=== PATIENT | female | born 1970 | race Caucasian/White ===

== ENCOUNTER 2021-03-04 07:04 | Day surgery (SDC) | payer BC ==
--- NOTE | 2021-03-01 16:15 | EKG ---
Test Date: 2021-02-28 Test Time: 13:12:14 Nutrition Professor: LUDWIG MEASUREMENT RESULTS: Intervals: Rate: 71 ID: [id number] QRSD: 82 QT: 392 QTc: 425 Saltese: P: 75 ID: [id number] QRS: 72 T: 76 INTERPRETIVE STATEMENTS: Normal sinus rhythm Normal ECG No previous ECG available for comparison Electronically Signed On 03-01-21 16:11:56 CDT by Jah Ford
[2021-03-04] MEDS ORDERED: Ringers Lactate 1,000 ML IV ONE ×2 (07:56→12:07)
[2021-03-04 08:43] LABS: Specific Gravity 1.015 (1.005-1.030)
[2021-03-04] MEDS ORDERED: LIDOCAINE 1% W/EPI 1:100,000 10 ML VIAL ONE (09:22)
[2021-03-04] MEDS ORDERED: EPINEPHRINE/PF 1 MG/ML AMP ONE (09:22)
[2021-03-04] MEDS ORDERED: BACITRACIN OINTMENT 15 GM TUBE TOP ONE (09:22)
[2021-03-04] MEDS ORDERED: OXYMETAZOLINE HCL 0.05% 15ML NAS ONE (09:22)
[2021-03-04] MEDS ORDERED: OFLOXACIN OPH 0.3%-5 ML BTL ONE (09:22)
[2021-03-04] MEDS ORDERED: propofoL 200 MG/20 ML VIAL IV ONE (10:39)
[2021-03-04] MEDS ORDERED: MIDAZOLAM HCL 2 MG/2 ML INJ ONE (10:39)
[2021-03-04] MEDS ORDERED: FENTANYL CITR 100 MCG/2 ML ONE (10:39)
[2021-03-04] MEDS ORDERED: dexAMETHasone 10 MG/ML VIAL ONE (10:39)
[2021-03-04] MEDS ORDERED: ROCURONIUM 50 MG/5 ML VIAL IV ONE (10:40)
[2021-03-04] MEDS ORDERED: LIDOCAINE 1% MPF 5 ML VIAL ONE (10:40)
[2021-03-04] MEDS ORDERED: ONDANSETRON 4 MG/2 ML VIAL ONE (10:40)
[2021-03-04] MEDS ORDERED: EPHEDRINE SULF 50 MG/ML VIAL ONE (11:14)
--- NOTE | 2021-03-04 11:28 | P.BOP ---
Preoperative diagnosis: left TM perforation Postoperative diagnosis: same Primary procedure: fat graft myringoplasty Display Director: NONE,NONE Estimated blood loss: minimal Specimen: left middle ear polyp Findings: 5% central perforation immediately overlying IS joint Anesthesia: General Complications: None Implants: none Fluids & blood products: crystalloid 1L Transferred to: Recovery Room Condition: Good
[2021-03-04] MEDS ORDERED: KETOROLAC 30 MG/ML INJ ONE (11:47)
[2021-03-04] MEDS ORDERED: NEOSTIGMINE 1 MG/ML -5 ML ONE (11:47)
[2021-03-04] MEDS ORDERED: GLYCOPYRROLATE 0.2 MG/ML SYR ONE (11:47)
[2021-03-04 12:15] VITALS: TEMP 96.9
--- NOTE | 2021-03-04 12:51 | OP ---
Surgeon: Irena Jack MD Preoperative Diagnosis: Left tympanic membrane perforation with conductive hearing loss. Postoperative Diagnosis: Left tympanic membrane perforation with conductive hearing loss. Procedure: Fat myringoplasty. Indication For Procedure: The patient presented to the ENT Clinic with a chronic perforation and con ductive hearing loss. After reviewing the risks and benefits, we discussed surgical options includin g myringoplasty and tympanoplasty deferring final decision for procedure based on intraoperative find ings. The patient was brought to the operative bed. Description Of Procedure In Detail: The patient was brought to the operating room. She was placed u nder general anesthesia via oral endotracheal tube. The head of bed was turned 90 degrees and the pa tient's head was turned toward the right for visualization of the left ear. A 5 mm ear speculum was used to aid in visualization using binocular microscopy. A 5% perforation was noted with a small ramakrishna unt of polypoid like granulation tissue at the superior anterior aspect. Visible through the perfora tion was the incudostapedial joint. Gentle palpation suggested that the ossicular chain was intact. A Ho needle, a sickle knife, and a fish elevator were used to gently rim the perforation in prepa ration for grafting. After adequate preparation and removal of a small amount of granulation polyp l adali tissue from the medial aspect of the eardrum, preparation was made for grafting. A 1 cm postauri cular incision was made through the skin using a scalpel and a small fat graft was harvested. The in cision was closed in a simple interrupted fashion using 5-0 fast-absorbing gut sutures. The fat shagufta t was placed in a dumbbell fashion through the perforation. The ear canal was then filled with oflox acin soaked Gelfoam dressing in order to provide protection during the healing process. A small amou nt of triple antibiotic ointment and bandage were applied to the graft donor site and the procedure w as concluded. The patient was returned to care of Anesthesia for awakening and extubation in the ope rating room, which proceeded without difficulty. Complications: None. Implants: None. Iv Fluids: 1 L of crystalloid. Blood Loss: Minimal, less than 5 mL. Disposition: The patient will follow up with Dr. Jack in 1 month for reevaluation of healing and is given strict ear and nasal precautions with ofloxacin eardrops and OTC pain medications as needed. JAMIE/ADAN Voice ID: [id number] Report ID: [id number]
[2021-03-04 13:14] VITALS: BP 114/51; O2SAT 98
== END 2021-03-04 13:30 | disposition home or self-care (01) ==
LOC: OR 07:04
PROVIDERS: ATTEND Otolaryngology
PROC: 0JB00ZZ Excision of Scalp Subcutaneous Tissue and Fascia, Open Approach (ICD-10-PCS; 2021-03-04)
PROC: 09U877Z Supplement Left Tympanic Membrane with Autologous Tissue Substitute, Via Natural or Artificial Opening (ICD-10-PCS; principal; 2021-03-04 08:30)
DX: H72.02 Central perforation of tympanic membrane, left ear (principal); H90.12 Conductive hearing loss, unilateral, left ear, with unrestricted hearing on the contralateral side; J32.4 Chronic pansinusitis; Z82.61 Family history of arthritis; H74.42 Polyp of left middle ear; Z20.822 Contact with and (suspected) exposure to COVID-19
CPT/HCPCS: 93005; 81025; 88304; 69620; U0002; J2704; J2250; J3010; J1100; J2710; J7120 ×2; J2405; 88305; J0171

== ENCOUNTER 2021-06-22 06:24 | Day surgery (SDC) | payer BC ==
[2021-06-22] MEDS ORDERED: CEFAZOLIN/NS 1gm 1 GM/50 ML BAG ONE (06:55)
[2021-06-22] MEDS: Ringers Lactate 1,000 ML IV ONE ×2 (07:00→07:57)
[2021-06-22] MEDS ORDERED: dexAMETHasone 10 MG/ML VIAL ONE (07:15)
[2021-06-22] MEDS ORDERED: BUPIVACAINE 0.5% PF 10 ML VIAL ONE (07:16)
[2021-06-22] MEDS ORDERED: dexAMETHasone 4 MG/ML VIAL ONE (07:16)
[2021-06-22] MEDS ORDERED: propofoL 200 MG/20 ML VIAL IV ONE (07:31)
[2021-06-22] MEDS ORDERED: LIDOCAINE 2% MPF 5 ML VIAL ONE (07:31)
[2021-06-22] MEDS ORDERED: FENTANYL CITR 100 MCG/2 ML ONE (07:31)
[2021-06-22] MEDS ORDERED: MIDAZOLAM HCL 2 MG/2 ML INJ ONE (07:31)
[2021-06-22] MEDS ORDERED: GLYCOPYRROLATE 0.2 MG/ML SYR ONE (07:51)
[2021-06-22] MEDS ORDERED: ONDANSETRON 4 MG/2 ML VIAL ONE (08:24)
[2021-06-22] MEDS ORDERED: CEFAZOLIN SODIUM 1 GM/VIAL ONE (08:25)
--- NOTE | 2021-06-22 09:08 | RAD REPORT ---
EXAM DESCRIPTION: RAD - Foot Left 2 View - 06/22/2021 8:57 am CLINICAL HISTORY: HEEL SPUR SX COMPARISON: Foot Left 3 View dated 01/26/2021 FINDINGS: Fluoroscopy time 0.5 minutes
[2021-06-22 09:23] VITALS: O2SAT 100
[2021-06-22] MEDS ORDERED: KETOROLAC 30 MG/ML INJ ONE (09:26)
[2021-06-22] MEDS: FENTANYL CITR 100 MCG/2 ML ONE ×4 (09:27→09:57)
[2021-06-22 10:57] VITALS: BP 110/51; TEMP 97
== END 2021-06-22 10:52 | disposition home or self-care (01) ==
LOC: OR 06:24
PROVIDERS: ATTEND Podiatrist Foot & Ankle Surgery
PROC: 0KNW0ZZ Release Left Foot Muscle, Open Approach (ICD-10-PCS; principal; 2021-06-22 07:30)
DX: M72.2 Plantar fascial fibromatosis (principal); M77.32 Calcaneal spur, left foot; Z20.822 Contact with and (suspected) exposure to COVID-19
CPT/HCPCS: 28060; 73620; U0003; J2704; J2250; J3010 ×2; J1100; J0690 ×2; J7120; J2405

== ENCOUNTER 2021-10-07 07:36 | Day surgery (SDC) | payer BC ==
[2021-10-03 09:20] LABS: Absolute Lymphocytes (CBC) 1.5 K/uL (0.7-4.9); Hematocrit 42.1 % (36.0-45.0); Lymphocytes % 29.4 % (15.3-44.8); MPV 7.9 fL (7.6-11.3); RBC Red Blood Cell Count 4.66 M/uL (3.86-4.86)
[2021-10-07] MEDS ORDERED: Ringers Lactate 1,000 ML IV ONE (07:56)
[2021-10-07 07:59] LABS: Specific Gravity >= 1.030 (1.005-1.030)
[2021-10-07] MEDS: OXYMETAZOLINE HCL 0.05% 15ML NAS ONE ×3 (08:05→08:15)
[2021-10-07] MEDS ORDERED: MIDAZOLAM HCL 2 MG/2 ML INJ ONE (08:18)
[2021-10-07] MEDS ORDERED: propofoL 200 MG/20 ML VIAL IV ONE (08:18)
[2021-10-07] MEDS ORDERED: FENTANYL CITR 100 MCG/2 ML ONE ×2 (08:18→10:10)
[2021-10-07] MEDS ORDERED: LIDOCAINE 2% MPF 5 ML VIAL ONE (08:21)
[2021-10-07] MEDS ORDERED: ROCURONIUM 50 MG/5 ML VIAL IV ONE (08:21)
[2021-10-07] MEDS ORDERED: dexAMETHasone 10 MG/ML VIAL ONE (08:22)
[2021-10-07] MEDS ORDERED: OXYMETAZOLINE HCL 0.05% 15ML NAS ONE (08:32)
[2021-10-07] MEDS: LIDOCAINE 1% W/EPI 1:100,000 MDV 50 ML VIAL ONE ×2 (08:36→09:45)
[2021-10-07] MEDS ORDERED: ONDANSETRON 4 MG/2 ML VIAL ONE (08:47)
[2021-10-07] MEDS ORDERED: NA CHLORIDE 0.9% 500 ML ONE (08:52)
[2021-10-07] MEDS ORDERED: ACETAMINOPHEN 500 MG TAB ONE (08:55)
[2021-10-07] MEDS ORDERED: CELECOXIB 100 MG CAPSULE ONE (08:56)
[2021-10-07] MEDS ORDERED: EPHEDRINE SULF 50 MG/ML VIAL ONE (09:28)
[2021-10-07] MEDS ORDERED: TRIAMCINOLONE ACETON 40 MG/ML VIAL ONE (10:33)
[2021-10-07] MEDS ORDERED: KETOROLAC 30 MG/ML INJ ONE (10:55)
[2021-10-07] MEDS ORDERED: AYR NASAL SALINE DROPS NAS PRN (11:41)
--- NOTE | 2021-10-07 11:42 | P.OP ---
Date of Service: 10/07/21 Preoperative Diagnosis: [Chronic maxillary sinusitis] [, chronic ethmoid sinusitis] [, nasal polyps] Postoperative diagnosis: Same Procedure: Bilateral nasal endoscopy with maxillary antrostomy and partial ethmoidectomy Surgeon: Irena Jack MD Lens Engraver: None Indication for procedure: The patient underwent maximal medical therapy for nasal polyps with chronic rhinosinusitis with persistent symptoms. Her post treatment CT showed continued abnormality of the sinuses. The risks, benefits, and alternatives to surgical procedure were discussed with the patient and/or family and they agreed to proceed. Surgical findings: Prominent polyps within the ethmoid, middle meatus, and olfactory cleft IV Fluids: Crystalloid, 900 ml Implants/Packing: Propel to the bilateral ethmoid, propel contour to the right maxillary, Posisep to the bilateral ethmoid and bilateral olfactory cleft soaked with a total of 2 mL of triamcinolone 40 mg/mL Estimated Blood Loss: 120 mL Complications: Progression of surgery halted to degree of bleeding which inhibited visualization Description of procedure in detail: The patient was brought to the operating room. They were placed under general anesthesia via oral endotracheal tube. The head of bed was turned 90 degrees. The nasal hairs were trimmed. The nasal cavity was examined with the nasal speculum and headlight with the following findings: Right inferior septal deviation with polyps within the bilateral middle meatus and medial to the middle turbinate. The nasal cavity was packed with Afrin-soaked pledgets in preparation for the procedure. The patient was draped in a standard fashion for nasal surgery. [Based on the surgical plan and preoperative findings, intraoperative CT navigation was required. The preoperative CT scan was loaded into the [employer] device. The registration dongle was applied with adhesive to the patient's forehead. The electromagnetic device was secured to the operating room bed and evaluation to limit interference was confirmed. The registration handpiece was used to perform patient registration in accordance with manufactu rer's instructions including tracing over the course of the external nose and bilateral forehead and cheeks. Accuracy of the registration was confirmed with [id number] matching at the base of the columella, the radix, and the bilateral medial and lateral canthi. Accuracy was felt to be very good.] A 0 degree endoscope was then used to perform a nasal endoscopy with notable findings of polyps within the olfactory cleft and middle meatus but not extending beyond the middle meatus. Photo documentation was obtained. The left middle turbinate was gently medialized with a Baggs and the uncinate process was removed using a backbiter and 90 degree Blakesley. There was moderate bleeding within the middle meatus and Afrin-soaked cottonoid packing was placed. Similar procedure was performed on the right side. After several minutes the cottonoid packing was removed and the maxillary antrostomies were each enlarged under rigid 30 degree endoscopic visualization using a 90 degree Blakesley. Additional bleeding ensued. A bipolar electrocautery was used to perform some cauterization within the right middle meatus, then Afrin-soaked cottonoid packing was applied. After several minutes the packing was removed and the precision pointer was used to navigate along the ethmoid bulla. The bulla was dissected with a curette and fragments of bone and polyp were removed using a straight, 45 and 90 degree Blakesley. There was moderate to severe oozing which required additional packing with Afrin-soaked pledgets. Dissection slowly progressed but visualization was limited and after opening of the anterior ethmoids, decision was made to forego additional dissection due to the degree of limited visualization. Photodocumentation of the bilateral ethmoids after dissection was obtained. A propel steroid eluding stent was placed into each of the ethmoid cavities. A Posisep resorbable dressing was divided in half with a portion placed within the ethmoid cavity and the remaining portion placed within the olfactory cleft on both the left and the right side. The resorbable dressing was then soaked with 1 mL of 40 mg/mL of triamcinolone on the left with an additional milliliter placed on the right. A propel contour was placed within the right maxillary antrostomy. No propel contour was available for the left side. Small fragments of the resorbable dressing were placed along the right anterior septum and soaked with approximately half a milliliter of saline. The nasopharynx was repeatedly suctioned and reexamined for several minutes until the area appeared clear from any additional bleeding. At the conclusion of the procedure, all pledget counts were confirmed correct. The patient was returned to care of anesthesia for awakening extubation in the operating room which proceeded without difficulty. The patient was transported to the recovery room and will be discharged home later today in the care of their family. The patient is given written and verbal instructions regarding the importance of saline irrigations and nasal precautions.
[2021-10-07] MEDS ORDERED: TRAMADOL HCL 50 MG TAB ONE (12:34)
[2021-10-07] MEDS ORDERED: SOD CHLORIDE 0.65% NASAL SPRAY NAS SCH (13:00)
[2021-10-07 13:08] VITALS: BP 116/47; O2SAT 99
[2021-10-07 13:17] VITALS: TEMP 97
== END 2021-10-07 12:50 | disposition home or self-care (01) ==
LOC: OR 07:36
PROVIDERS: ATTEND Otolaryngology
PROC: 099Q8ZZ Drainage of Right Maxillary Sinus, Via Natural or Artificial Opening Endoscopic (ICD-10-PCS; 2021-10-07)
PROC: 099R8ZZ Drainage of Left Maxillary Sinus, Via Natural or Artificial Opening Endoscopic (ICD-10-PCS; principal; 2021-10-07 08:45)
DX: J32.4 Chronic pansinusitis (principal); J34.2 Deviated nasal septum; J33.9 Nasal polyp, unspecified; Z20.822 Contact with and (suspected) exposure to COVID-19
CPT/HCPCS: 85025; 36415; 81025; 88305; 31256; 31254; U0002; J2704; J3301; J2250; J3010 ×2; J1100; J7120; J7040; J2405

== ENCOUNTER 2022-03-03 06:02 | Day surgery (SDC) | payer BC ==
[2022-02-28 13:32] LABS: Absolute Lymphocytes (CBC) 2.8 K/uL (0.7-4.9); Lymphocytes % 31.7 % (15.3-44.8); MPV 7.5 fL (7.6-11.3); RBC Red Blood Cell Count 4.71 M/uL (3.86-4.86)
[2022-02-28 13:42] LABS: SARS-CoV-2 Antigen Rapid Res Negative (Negative)
[2022-03-03] MEDS ORDERED: Ringers Lactate 1,000 ML IV ONE (06:14)
[2022-03-03] MEDS ORDERED: CEFAZOLIN SODIUM 1 GM/VIAL ONE (06:14)
[2022-03-03] MEDS ORDERED: propofoL 200 MG/20 ML VIAL IV ONE (06:56)
[2022-03-03] MEDS ORDERED: LIDOCAINE 2% MPF 5 ML VIAL ONE (06:57)
[2022-03-03] MEDS ORDERED: ONDANSETRON 4 MG/2 ML VIAL ONE ×2 (06:57→07:42)
[2022-03-03] MEDS ORDERED: FENTANYL CITR 100 MCG/2 ML ONE (06:57)
[2022-03-03] MEDS ORDERED: MIDAZOLAM HCL 2 MG/2 ML INJ ONE (06:57)
[2022-03-03] MEDS ORDERED: ALBUTEROL INHALER 60 PUFF/8 GM IH ONE (07:04)
[2022-03-03] MEDS ORDERED: dexAMETHasone 10 MG/ML VIAL ONE (07:40)
--- NOTE | 2022-03-03 08:06 | OP ---
Date of Procedure: 03/03/2022 Surgeon: Se Og MD Preoperative Diagnosis: Right carpal tunnel syndrome. Postoperative Diagnosis: Right carpal tunnel syndrome. Procedure: Right open carpal tunnel release. Estimated Blood Loss: Less than 3 cc. Complications: There were no complications. Specimen: No pathology specimen sent. Indications For Operation: Ms. Valderrama is a 52-year-old female who unfortunately has had pain and numbness and tingling in her hand for some time. She was sent to Neurology, which demonstrates she does have carpal tunnel syndrome. She has been treating this conservatively as she can, but it has b ecome such a bother that she now requests operative intervention and all risks, benefits, and alterna tives to the procedure were discussed. She states she understands things presented and wished to pro ceed. Description Of Procedure: The patient was taken to the operating room and placed in supine position. General anesthesia was easily obtained by the Anesthesia staff. Following this, a well-padded tour niquet was placed on superior right arm. Right upper extremity was then prepped and draped in usual sterile fashion for procedure. After this, the presumed incision was then marked out and the arm was then elevated, but not exsanguinated, and tourniquet was raised. A standard incision was made, whic h parallels the thenar crease with slight ulnar deviation at the distal wrist crease, was taken down carefully through skin, only meticulous hemostasis being maintained using bipolar electrocautery. Th is leads down to the palmar fascia which was divided longitudinally. After this, any obstructions of the transverse carpal ligament were gently swept to the side and a small lele was made in the transv erse carpal ligament, which demonstrates the underlying median nerve and carpal tunnel structures. I t was then released from a proximal to distal direction until there were no constricting bands. It s hould be noted that the motor branch may be piercing the transverse carpal ligament; however, definit piero was identified and not injured. Attention was then turned from a distal to proximal direction un til there were no constricting bands. At the conclusion, the nerve was inspected, it was found to be in continuity throughout its course and at no time were any sharp instruments placed outside the dir ect operative view. After this, the incision was then gently sutured and the patient was placed in a well-padded sterile dressing, awakened, and taken to recovery room in good condition, no complicatio ns. /ADAN Voice ID: [id number] Report ID: [id number]
[2022-03-03] MEDS: HYDROMORPHONE HCL 1 MG/ML INJ ONE ×2 (08:10→08:18)
[2022-03-03] MEDS ORDERED: HYDROMORPHONE HCL 1 MG/ML INJ ONE (08:37)
[2022-03-03 09:36] VITALS: BP 97/52; TEMP 97.2; O2SAT 95
== END 2022-03-03 09:00 | disposition home or self-care (01) ==
LOC: OR 06:02
PROVIDERS: ATTEND Orthopaedic Surgery
PROC: 01N50ZZ Release Median Nerve, Open Approach (ICD-10-PCS; principal; 2022-03-03 07:00)
DX: G56.01 Carpal tunnel syndrome, right upper limb (principal); J45.909 Unspecified asthma, uncomplicated; Z20.822 Contact with and (suspected) exposure to COVID-19
CPT/HCPCS: 36415; 80048; 85025; 87811; J0690; J1100; J1170; J2001; J2250; J2405; J2704; J3010; J7120